=== PATIENT | male | born 1945 | race Caucasian/White ===

== ENCOUNTER → 2016-09-04 | Outpatient (CLI) | payer MEDICARE, BC ==
[~2016-09-04] MED LIST: ANDROGEL1% TP; CALCIUM + D 6001 TA1 PO; COUMADIN10 MG PO; COZAAR50 MG PO; GLUCOSAMINE & C1 TE1 PO; HCTZ 25MG25 MG PO; LISINOPRIL40 MG PO; OMEGA 31000 MG PO; SIMVASTATIN20 MG PO; TIAZAC300 MG PO; VIAGRA100 MG PO; VITAMIN C100 M2 PO; VITAMIN D31000 I1 PO
== END ==
LOC: LAB 10:58
DX: R97.20 Elevated prostate specific antigen [PSA] (principal)

== ENCOUNTER → 2016-09-15 | Outpatient (CLI) | payer MEDICARE, BC ==
[2013-06-16 15:32] VITALS: BP 161/80
== END ==
LOC: LAB 07:53
DX: I48.2 Chronic atrial fibrillation (principal); E78.5 Hyperlipidemia, unspecified

== ENCOUNTER → 2017-05-07 | Outpatient (CLI) | payer MEDICARE, BC ==
[2013-06-16 15:32] VITALS: BP 161/80
== END ==
LOC: LAB 08:25
DX: I10 Essential (primary) hypertension (principal); Z12.11 Encounter for screening for malignant neoplasm of colon

== ENCOUNTER → 2017-09-29 | Outpatient (CLI) | payer MEDICARE, BC ==
[2013-06-16 15:32] VITALS: BP 161/80
== END ==
LOC: LAB 07:44
DX: R97.20 Elevated prostate specific antigen [PSA] (principal)

== ENCOUNTER → 2018-05-10 | Outpatient (CLI) | payer MEDICARE, BC ==
[2013-06-16 15:32] VITALS: BP 161/80
== END ==
LOC: LAB 08:57
DX: I48.2 Chronic atrial fibrillation (principal)

== ENCOUNTER → 2018-05-20 | Outpatient (CLI) | payer MEDICARE, BC ==
[2013-06-16 15:32] VITALS: BP 161/80
[2018-05-20 08:33] LABS: EOS # 0.1 (0.04-0.40); EOS % 1.5 % (0.0-4.0); HEMATOCRIT 41.1 % (42.0-52.0); HEMOGLOBIN 14.7 g/dL (13.5-18.0); LYMPH# 2.2 (1.50-4.00); MEAN CELL VOLUME 94 fl (78-100); MEAN CORPUSCULAR HEMOGLOBIN 34 pg (27-31); MEAN CORPUSCULAR HGB CONC 36 g/dL (33-37); MEAN PLATELET VOLUME 10.7 fl (7.4-10.4); MONO # 0.6 (0.20-0.80); NEU # 2.3 (1.40-6.50); PLATELET COUNT 184 K/mm3 (130-400); RED BLOOD COUNT 4.36 M/mm3 (4.20-5.60); RED CELL DISTRIBUTION WIDTH 11.7 % (11.5-14.5); WHITE BLOOD COUNT 5.2 K/mm3 (4.8-10.8)
[2018-05-20 08:36] LABS: ALBUMIN 4.4 g/dL (3.5-5.0); TOTAL BILIRUBIN 0.4 mg/dL (0.2-1.3); TOTAL PROTEIN 6.7 g/dL (6.3-8.2)
[2018-05-20 08:38] LABS: URINE APPEARANCE CLEAR; URINE BILIRUBIN NEGATIVE (NEGATIVE); URINE BLOOD NEGATIVE (NEGATIVE); URINE COLOR YELLOW; URINE GLUCOSE NEGATIVE (NEGATIVE); URINE KETONE NEGATIVE (NEGATIVE); URINE LEUKOCYTE ESTERASE NEGATIVE (NEGATIVE); URINE MUCUS PRESENT (NOT PRESENT); URINE NITRATE NEGATIVE (NEGATIVE); URINE PROTEIN(semi-quant) NEGATIVE (NEGATIVE); URINE UROBILINOGEN NORMAL (NORMAL)
[2018-05-21 00:28] LABS: TESTOSTERONE 166 ng/dL (221-716)
== END ==
LOC: LAB 08:00
PROVIDERS: Internal Medicine
DX: Z12.5 Encounter for screening for malignant neoplasm of prostate (principal); Z12.11 Encounter for screening for malignant neoplasm of colon; I10 Essential (primary) hypertension; E78.5 Hyperlipidemia, unspecified; N52.9 Male erectile dysfunction, unspecified; R20.2 Paresthesia of skin

== ENCOUNTER → 2018-05-27 | Outpatient (CLI) | payer MEDICARE, BC ==
[2013-06-16 15:32] VITALS: BP 161/80
== END ==
LOC: LAB 15:27
DX: Z12.11 Encounter for screening for malignant neoplasm of colon (principal)

== ENCOUNTER → 2018-09-27 | Outpatient (CLI) | payer MEDICARE, BC ==
[2013-06-16 15:32] VITALS: BP 161/80
== END ==
LOC: LAB 08:45
DX: R35.1 Nocturia (principal)

== ENCOUNTER → 2019-03-02 | Outpatient (CLI) | payer MEDICARE, BC ==
[2013-06-16 15:32] VITALS: BP 161/80
== END ==
LOC: LAB 08:17
PROVIDERS: Urology
DX: R97.20 Elevated prostate specific antigen [PSA] (principal)

== ENCOUNTER → 2019-04-13 | Day surgery (SDC) | payer MEDICARE, BC ==
[2013-06-16 15:32] VITALS: BP 161/80
== END ==
LOC: MSO 08:16
DX: Z12.11 Encounter for screening for malignant neoplasm of colon (principal); K62.1 Rectal polyp; I10 Essential (primary) hypertension; I48.91 Unspecified atrial fibrillation; G47.33 Obstructive sleep apnea (adult) (pediatric); N40.0 Benign prostatic hyperplasia without lower urinary tract symptoms; E66.9 Obesity, unspecified; Z86.010 Personal history of colon polyps; Z79.01 Long term (current) use of anticoagulants
CPT/HCPCS: 00811; J2704; J7120

== ENCOUNTER → 2019-10-21 | Outpatient (CLI) | payer MEDICARE ==
[2013-06-16 15:32] VITALS: BP 161/80
[2019-10-21 09:32] LABS: EOS # 0.1 (0.04-0.40); EOS % 1.7 % (0.0-4.0); HEMATOCRIT 41.3 % (42.0-52.0); HEMOGLOBIN 14.1 g/dL (13.5-18.0); LYMPH# 1.8 (1.50-4.00); MEAN CELL VOLUME 95 fl (78-100); MEAN CORPUSCULAR HEMOGLOBIN 32 pg (27-31); MEAN CORPUSCULAR HGB CONC 34 g/dL (33-37); MEAN PLATELET VOLUME 10.7 fl (7.4-10.4); MONO # 0.5 (0.20-0.80); NEU # 2.5 (1.40-6.50); PLATELET COUNT 165 K/mm3 (130-400); RED BLOOD COUNT 4.36 M/mm3 (4.20-5.60); RED CELL DISTRIBUTION WIDTH 12.3 % (11.5-14.5); WHITE BLOOD COUNT 4.8 K/mm3 (4.8-10.8)
[2019-10-21 09:38] LABS: ALBUMIN 4.2 g/dL (3.4-4.8); POTASSIUM 3.9 mmol/L (3.5-5.1)
[2019-10-21 09:39] LABS: CALCIUM 9.4 mg/dL (8.3-10.5)
[2019-10-21 09:40] LABS: TOTAL PROTEIN 6.5 g/dL (6.2-8.1)
[2019-10-21 09:42] LABS: TOTAL BILIRUBIN 0.5 mg/dL (0.2-1.2)
[2019-10-21 10:40] LABS: ERYTHROCYTE SEDIMENTATION RATE 6 mm/hr (0-20)
[2019-10-21 15:40] LABS: TESTOSTERONE 187 ng/dL (221-716)
== END ==
LOC: LAB 08:32
PROVIDERS: Urology
DX: Z12.5 Encounter for screening for malignant neoplasm of prostate (principal); Z12.11 Encounter for screening for malignant neoplasm of colon; I10 Essential (primary) hypertension; I48.20 Chronic atrial fibrillation, unspecified; E78.5 Hyperlipidemia, unspecified; E23.0 Hypopituitarism; R97.20 Elevated prostate specific antigen [PSA]; R20.2 Paresthesia of skin

== ENCOUNTER → 2019-11-13 | Outpatient (CLI) | payer MEDICARE ==
[2013-06-16 15:32] VITALS: BP 161/80
== END ==
LOC: LAB 08:25
DX: Z12.5 Encounter for screening for malignant neoplasm of prostate (principal); Z12.11 Encounter for screening for malignant neoplasm of colon; I10 Essential (primary) hypertension

== ENCOUNTER → 2020-10-15 | Outpatient (CLI) | payer MEDICARE ==
[2013-06-16 15:32] VITALS: BP 161/80
== END ==
LOC: LAB 14:33
DX: R35.1 Nocturia (principal); R97.20 Elevated prostate specific antigen [PSA]

== ENCOUNTER → 2021-07-10 | Outpatient (CLI) | payer MEDICARE ==
[2021-07-10 09:19] LABS: POTASSIUM 4.1 mmol/L (3.5-5.1)
[2021-07-10 09:20] LABS: CALCIUM 9.6 mg/dL (8.3-10.5)
== END ==
LOC: LAB 08:53
DX: I10 Essential (primary) hypertension (principal)

== ENCOUNTER → 2021-08-21 | Outpatient (CLI) | payer MEDICARE ==
[2021-08-21 10:21] LABS: BASO # 0.04 K/mm3 (0.02-0.10); EOS # 0.06 K/mm3 (0.04-0.40); EOS % 1.1 % (0.0-4.0); HEMATOCRIT 40.9 % (42.0-52.0); HEMOGLOBIN 14.3 g/dL (13.5-18.0); MEAN CELL VOLUME 95 fl (78-100); MEAN CORPUSCULAR HEMOGLOBIN 33 pg (27-31); MEAN CORPUSCULAR HGB CONC 35 g/dL (33-37); MEAN PLATELET VOLUME 9.9 fl (7.4-10.4); MONO # 0.49 K/mm3 (0.20-0.80); NEU # 2.48 K/mm3 (1.40-6.50); PLATELET COUNT 184 K/mm3 (130-400); RED BLOOD COUNT 4.31 M/mm3 (4.20-5.60); WHITE BLOOD COUNT 5.5 K/mm3 (4.8-10.8)
[2021-08-21 10:24] LABS: ALBUMIN 4.3 g/dL (3.4-4.8); POTASSIUM 4.1 mmol/L (3.5-5.1)
[2021-08-21 10:25] LABS: CALCIUM 9.8 mg/dL (8.3-10.5)
[2021-08-21 10:27] LABS: TOTAL PROTEIN 6.8 g/dL (6.2-8.1)
[2021-08-21 10:28] LABS: TOTAL BILIRUBIN 0.6 mg/dL (0.2-1.2)
[2021-08-21 11:37] LABS: ERYTHROCYTE SEDIMENTATION RATE 4 mm/hr (0-20)
== END ==
LOC: LAB 09:43
PROVIDERS: Internal Medicine
DX: Z12.11 Encounter for screening for malignant neoplasm of colon (principal); I48.20 Chronic atrial fibrillation, unspecified; K90.9 Intestinal malabsorption, unspecified; I10 Essential (primary) hypertension; E78.2 Mixed hyperlipidemia; N40.1 Benign prostatic hyperplasia with lower urinary tract symptoms; E23.0 Hypopituitarism; N20.0 Calculus of kidney; G47.33 Obstructive sleep apnea (adult) (pediatric)

== ENCOUNTER → 2021-08-28 | Outpatient (CLI) | payer MEDICARE | LOC: LAB 08:46 | DX: Z12.11 Encounter for screening for malignant neoplasm of colon (principal); I10 Essential (primary) hypertension; N40.1 Benign prostatic hyperplasia with lower urinary tract symptoms; I48.20 Chronic atrial fibrillation, unspecified; E23.0 Hypopituitarism; N20.0 Calculus of kidney; E78.2 Mixed hyperlipidemia; G47.33 Obstructive sleep apnea (adult) (pediatric); K90.9 Intestinal malabsorption, unspecified ==

== ENCOUNTER 2021-10-24 09:58 | Outpatient (RCR) | payer MEDICARE | END 2021-11-04 | disposition home or self-care (01) | LOC: PT | DX: M47.816 Spondylosis without myelopathy or radiculopathy, lumbar region (principal) ==

== ENCOUNTER → 2022-09-02 | Outpatient (CLI) | payer MEDICARE | LOC: LAB 14:52 | DX: Z53.9 Procedure and treatment not carried out, unspecified reason (principal) ==

== ENCOUNTER → 2023-09-17 | Outpatient (CLI) | payer MEDICARE ==
[2023-09-17 07:59] LABS: BASO # 0.04 K/mm3 (0.02-0.10); EOS % 1.2 % (0.0-4.0); HEMATOCRIT 47.9 % (42.0-52.0); HEMOGLOBIN 16.2 g/dL (13.5-18.0); LYMPH# 2.47 K/mm3 (1.50-4.00); MEAN CELL VOLUME 95 fl (78-100); MEAN CORPUSCULAR HEMOGLOBIN 32 pg (27-31); MEAN CORPUSCULAR HGB CONC 34 g/dL (33-37); MEAN PLATELET VOLUME 9.3 fl (7.4-10.4); NEU # 4.86 K/mm3 (1.40-6.50); PLATELET COUNT 285 K/mm3 (130-400); RED BLOOD COUNT 5.05 M/mm3 (4.20-5.60); RED CELL DISTRIBUTION WIDTH 11.5 % (11.5-14.5); WHITE BLOOD COUNT 8.2 K/mm3 (4.8-10.8)
[2023-09-17 08:04] LABS: ALBUMIN 3.9 g/dL (3.4-4.8)
[2023-09-17 08:05] LABS: CALCIUM 9.8 mg/dL (8.3-10.5)
[2023-09-17 08:06] LABS: TOTAL PROTEIN 6.9 g/dL (6.2-8.1)
[2023-09-17 08:08] LABS: TOTAL BILIRUBIN 0.5 mg/dL (0.2-1.2)
[2023-09-17 08:13] LABS: MAGNESIUM 1.9 mg/dL (1.60-2.60)
[2023-09-17 08:56] LABS: URINE APPEARANCE CLEAR (CLEAR); URINE COLOR YELLOW (YELLOW); URINE GLUCOSE NEGATIVE (NEGATIVE); URINE PROTEIN(semi-quant) NEGATIVE (NEGATIVE)
[2023-09-17 08:57] LABS: URINE BILIRUBIN NEGATIVE (NEGATIVE); URINE BLOOD NEGATIVE (NEGATIVE); URINE KETONE TRACE (NEGATIVE); URINE NITRATE NEGATIVE (NEGATIVE)
[2023-09-17 08:58] LABS: URINE LEUKOCYTE ESTERASE TRACE (NEGATIVE)
[2023-09-17 23:26] LABS: TESTOSTERONE 107 ng/dL (221-716)
[2023-09-17 23:27] LABS: HEPATITIS C VIRUS ANTIBODY Negative (Negative)
== END ==
LOC: LAB 07:26
PROVIDERS: Internal Medicine
DX: Z12.5 Encounter for screening for malignant neoplasm of prostate (principal); Z12.11 Encounter for screening for malignant neoplasm of colon; Z11.59 Encounter for screening for other viral diseases; I10 Essential (primary) hypertension; E78.2 Mixed hyperlipidemia; R73.03 Prediabetes; E23.0 Hypopituitarism; N39.0 Urinary tract infection, site not specified

== ENCOUNTER → 2023-11-08 | Outpatient (CLI) | payer MEDICARE | LOC: LAB 12:30 | DX: R97.20 Elevated prostate specific antigen [PSA] (principal) ==

== ENCOUNTER 2024-06-23 13:15 | Emergency (ER) | payer MEDICARE ==
[~2024-06-23] VITALS: Ht 175.3 cm; Wt 112.0 kg
[2024-06-23 13:41] LABS: BASO # 0.03 K/mm3 (0.02-0.10); EOS # 0.12 K/mm3 (0.04-0.40); EOS % 1.6 % (0.0-4.0); HEMOGLOBIN 17.1 g/dL (13.5-18.0); LYMPH# 2.59 K/mm3 (1.50-4.00); MEAN CELL VOLUME 96 fl (78-100); MEAN CORPUSCULAR HEMOGLOBIN 33 pg (27-31); MEAN CORPUSCULAR HGB CONC 34 g/dL (33-37); MEAN PLATELET VOLUME 9.8 fl (7.4-10.4); MONO # 0.75 K/mm3 (0.20-0.80); NEU # 3.89 K/mm3 (1.40-6.50); PLATELET COUNT 180 K/mm3 (130-400); WHITE BLOOD COUNT 7.4 K/mm3 (4.8-10.8)
[2024-06-23 13:49] LABS: SODIUM 137 mmol/L (136-145)
[2024-06-23 13:50] LABS: ALBUMIN 4.1 g/dL (3.4-4.8)
[2024-06-23 13:51] LABS: CALCIUM 9.5 mg/dL (8.3-10.5)
[2024-06-23 13:52] LABS: TOTAL PROTEIN 6.7 g/dL (6.2-8.1)
[2024-06-23 13:53] LABS: CARBON DIOXIDE 24 mmol/L (23-31); GLUCOSE 95 mg/dL (75-110)
[2024-06-23 13:54] LABS: TOTAL BILIRUBIN 0.5 mg/dL (0.2-1.2)
[2024-06-23 13:57] LABS: AST-SGOT 34 U/L (5-34)
[2024-06-23 14:00] LABS: ALT/SGPT 47 U/L (0-55)
[2024-06-23] MEDS ORDERED: ELIQUIS5 MG (14:03)
[2024-06-23 14:10] LABS: TROPONIN-I < 0.030 ng/mL (0.00-0.033)
[2024-06-23 14:35] VITALS: BP 152/98
== END 2024-06-23 14:30 | disposition home or self-care (01) ==
LOC: ED 13:15
PROVIDERS: Family Medicine
DX: H53.2 Diplopia (principal); K46.9 Unspecified abdominal hernia without obstruction or gangrene; I48.20 Chronic atrial fibrillation, unspecified; R00.1 Bradycardia, unspecified; E66.9 Obesity, unspecified; Z87.891 Personal history of nicotine dependence; Z79.01 Long term (current) use of anticoagulants

== ENCOUNTER → 2024-07-04 | Outpatient (CLI) | payer MEDICARE ==
[~2024-07-04] MED LIST changes: +ELIQUIS5 MG; +Gadoterate 20 ML VIAL IV ONE
[2024-07-05 00:42] LABS: COMPLEMENT C3 127 mg/dL (82-185); COMPLEMENT-C4 27 mg/dL (15-53)
[2024-07-05 08:48] LABS: IGM,SERUM 48 mg/dL (22-240); IMMUNOGLOBULIN A 200 mg/dL (101-645); IMMUNOGLOBULIN G 813 mg/dL (540-1822)
[2024-07-05 16:01] LABS: ANA SCREEN with REFLEX Negative (Negative)
[2024-07-06 11:09] LABS: C-ANCA 36 U/mL (0-99)
[2024-07-06 14:09] LABS: KAPPA LAMBDA RATIO 1.31 (())
[2024-07-06 19:08] LABS: ANTI-CYC CITRULLINATED PEPT AB 9 units (0-19)
== END ==
LOC: RAD 09:00
PROVIDERS: Internal Medicine
DX: I77.6 Arteritis, unspecified (principal)
CPT/HCPCS: A9575

== ENCOUNTER → 2024-07-04 | Outpatient (CLI) | payer MEDICARE ==
[~2024-07-04] MED LIST changes: -Gadoterate 20 ML VIAL IV ONE
== END ==
LOC: RAD 08:43
DX: I67.82 Cerebral ischemia (principal); H53.9 Unspecified visual disturbance

== ENCOUNTER → 2024-09-25 | Outpatient (CLI) | payer MEDICARE ==
[2024-09-25 10:25] LABS: BASO # 0.03 K/mm3 (0.02-0.10); EOS # 0.09 K/mm3 (0.04-0.40); EOS % 1.5 % (0.0-4.0); HEMATOCRIT 41.8 % (42.0-52.0); HEMOGLOBIN 14.4 g/dL (13.5-18.0); LYMPH# 1.94 K/mm3 (1.50-4.00); MEAN CELL VOLUME 95 fl (78-100); MEAN CORPUSCULAR HEMOGLOBIN 33 pg (27-31); MEAN CORPUSCULAR HGB CONC 34 g/dL (33-37); MEAN PLATELET VOLUME 9.8 fl (7.4-10.4); MONO # 0.56 K/mm3 (0.20-0.80); NEU # 3.53 K/mm3 (1.40-6.50); PLATELET COUNT 175 K/mm3 (130-400); RED BLOOD COUNT 4.41 M/mm3 (4.20-5.60); RED CELL DISTRIBUTION WIDTH 12.4 % (11.5-14.5); WHITE BLOOD COUNT 6.2 K/mm3 (4.8-10.8)
[2024-09-25 10:33] LABS: CALCIUM 9.3 mg/dL (8.3-10.5)
[2024-09-25 10:34] LABS: TOTAL PROTEIN 6.8 g/dL (6.2-8.1)
[2024-09-25 10:36] LABS: TOTAL BILIRUBIN 0.6 mg/dL (0.2-1.2)
[2024-09-25 10:40] LABS: PH-URINE 5.5 (5.0 - 8.0); URINE APPEARANCE CLEAR (CLEAR); URINE BILIRUBIN NEGATIVE (NEGATIVE); URINE BLOOD NEGATIVE (NEGATIVE); URINE COLOR YELLOW (YELLOW); URINE GLUCOSE NEGATIVE (NEGATIVE); URINE KETONE TRACE (NEGATIVE); URINE LEUKOCYTE ESTERASE NEGATIVE (NEGATIVE); URINE NITRATE NEGATIVE (NEGATIVE); URINE PROTEIN(semi-quant) NEGATIVE (NEGATIVE)
[2024-09-25 10:41] LABS: MAGNESIUM 1.79 mg/dL (1.60-2.60); URINE MUCUS PRESENT (NOT PRESENT); URINE WBC 0-1 /hpf (0-3)
== END ==
LOC: LAB 10:10
PROVIDERS: Internal Medicine
DX: I10 Essential (primary) hypertension (principal); K90.9 Intestinal malabsorption, unspecified; E78.2 Mixed hyperlipidemia; R73.03 Prediabetes